=== PATIENT | female | born 1960 | race Hispanic/Latino ===

== ENCOUNTER 2018-09-12 05:40 | Day surgery (SDC) | payer OTHER ==
[2018-09-12] VITALS (9 sets, daily range): BP systolic 87–139; BP diastolic 43–75
[~2018-09-12 05:40] MED LIST: XELJANZ PO
[2018-09-12] MEDS ORDERED: SODIUM CHLORIDE 0.9% 1000ML 1,000 ML IV ONE (05:59)
[2018-09-12] MEDS ORDERED: PROPOFOL 10 MG/ML 20ML VIAL IV ONE (06:18)
[2018-09-12] MEDS ORDERED: LIDOCAINE HCL-MPF 2% 5ML VIAL ONE (06:19)
[2018-09-12] MEDS ORDERED: GLYCOPYRROLATE 0.2 MG/ML 5 ML VIAL ONE (06:19)
== END 2018-09-12 08:00 | disposition home or self-care (01) ==
LOC: DAH 05:40 → ENDO 05:40
PROVIDERS: ATTEND Internal Medicine
DX: K29.50 Unspecified chronic gastritis without bleeding (principal); K31.89 Other diseases of stomach and duodenum; M19.90 Unspecified osteoarthritis, unspecified site; M06.9 Rheumatoid arthritis, unspecified; Z98.890 Other specified postprocedural states; Z80.0 Family history of malignant neoplasm of digestive organs; Z79.899 Other long term (current) drug therapy; B96.81 Helicobacter pylori [H. pylori] as the cause of diseases classified elsewhere; E11.9 Type 2 diabetes mellitus without complications
CPT/HCPCS: 43237; 43239; 88305; J2704; J3490 ×2; J7030; 43231

== ENCOUNTER 2024-09-17 08:52 | Day surgery (SDC) | payer MEDICARE ==
[2024-09-17] VITALS (20 sets, daily range): BP systolic 109–178; BP diastolic 59–87; PULSE 83–115; RESP 15–20; TEMP 97–97.8
[~2024-09-17] VITALS: Ht 149.9 cm; Wt 48.5 kg
[~2024-09-17 08:52] MED LIST changes: +HYDR200T75 PO; +NALTREXONE PO; +PROGESTERONE PO
[2024-09-17] MEDS: 0.9%NACL 1000ML 1,000 ML IV ONE (10:34)
[2024-09-17] MEDS ORDERED: proPOFol 10 MG/ML 20ML VIAL IV ONE (11:36)
[2024-09-17] MEDS ORDERED: SUCCINYLCHOLINE CHLORIDE 20 MG/ML 10 ML VIAL ONE (11:36)
[2024-09-17] MEDS ORDERED: ondanSETRON 4MG INJ ONE (11:36)
[2024-09-17] MEDS: INDOMETHACIN 100 MG SUPP.RECT RC ONE (11:50)
[2024-09-17] MEDS ORDERED: FENTanyl CITRate PF 50 MCG/1 ML 2ML VIAL ONE (11:53)
[2024-09-17] MEDS ORDERED: IOHEXOL-350 50ML VIAL IV ONE (12:16)
[2024-09-17] MEDS: ondanSETRON 4MG INJ ONE (12:26)
[2024-09-17] MEDS: metoCLOPRAmide 10 MG/2 ML VIAL ONE (12:56)
--- NOTE | 2024-09-17 17:19 | HMCIMG ---
ERCP BILI/PANC DUCT REASON: CHOLEDOCHOLITHIASIS. COMPARISON: None TECHNIQUE: ERCP was performed. FINDINGS: Please see procedure report by referring physician. IMPRESSION: ERCP.
== END 2024-09-17 14:15 | disposition home or self-care (01) ==
LOC: DAH 08:52 → SUH 08:52
PROVIDERS: ATTEND Internal Medicine Gastroenterology
DX: R93.2 Abnormal findings on diagnostic imaging of liver and biliary tract (principal); K80.51 Calculus of bile duct without cholangitis or cholecystitis with obstruction; R74.8 Abnormal levels of other serum enzymes; K76.0 Fatty (change of) liver, not elsewhere classified; K29.40 Chronic atrophic gastritis without bleeding; K22.2 Esophageal obstruction; I10 Essential (primary) hypertension; E11.9 Type 2 diabetes mellitus without complications; E03.9 Hypothyroidism, unspecified; F41.9 Anxiety disorder, unspecified; F32.A Depression, unspecified; M06.9 Rheumatoid arthritis, unspecified; E78.00 Pure hypercholesterolemia, unspecified; Z90.49 Acquired absence of other specified parts of digestive tract; Z98.82 Breast implant status; Z88.8 Allergy status to other drugs, medicaments and biological substances; Z98.890 Other specified postprocedural states; Z79.899 Other long term (current) drug therapy
CPT/HCPCS: 43262; 43264; 74328; J3010; J0330; J7030 ×2; J2704; J2405 ×2; J2765; Q9967; A4215; A7002; C1769; C1773; 74330; J3490